=== PATIENT | female | born 1985 | race Caucasian/White ===

== ENCOUNTER 2025-08-30 18:42 | Emergency (ER) | payer BC, SELFPAY ==
[2025-08-30] MEDS ORDERED: HYDROcodone/Acetaminophen 5/325 mg Tablet ONE (19:50)
[2025-08-30] MEDS ORDERED: Ibuprofen 800 MG TAB ONE (19:50)
== END 2025-08-30 19:54 | disposition home or self-care (01) ==
LOC: ERS 18:42
DX: K08.89 Other specified disorders of teeth and supporting structures (principal); K02.9 Dental caries, unspecified; K03.81 Cracked tooth; F17.210 Nicotine dependence, cigarettes, uncomplicated
CPT/HCPCS: 99282